=== PATIENT | female | born 2000 | race Caucasian/White ===

== ENCOUNTER 2020-02-29 12:00 | Outpatient (RCR) | payer OTHER, SELFPAY ==
--- NOTE | 2020-02-15 15:23 | HP.PTEVAL_ITS ---
Patient's Visit Information THADDEUS MEHTA is a 19 year old F referred to Physical Therapy by Dr. Sixto Jensen MD with a diagnosis of . Date of Evaluation: 02/15/20 Physical Therapist: Catrachito Lewis DPT - Visit Plan Frequency: 1-2x /Week Duration: 6 Weeks Plan: Start with trial of heel lift to determine if beneficial. May need custom orthotic if beneficial. Progress core and hip strengthening for pelvic stability. Also add in IT band stretching. - Subjective Pt. is her today for her initial evaluation with diagnosis of B knees, B hips (R worse than L), and low back pain. Pt. reports no mechanism of injury. Pain has been on and off for years, but worse since starting job (standing ~8 hours a day). Pt. denies N/T. Decreased pain wtih sitting. R leg does pop with walking, each step (not painful). Pt. reports some OTC medcation help, but does not use much. Pt. - Pain lumbar spine Pain Intensity (Out of 10): 0 Pain Intensity Range: 8 R hip Pain Intensity (Out of 10): 0 Pain Intensity Range: 0, 9 L hip Pain Intensity (Out of 10): 0 Pain Intensity Range: 0, 6 R knee Pain Intensity (Out of 10): 0 Pain Intensity Range: 0, 8 L knee Pain Intensity (Out of 10): 0 Pain Intensity Range: 0, 7 - Objective POSTURE: PALPATION: NEURO: ROM: MMT: GAIT: - Goals Goal 1:: LTG: Pt. to be I with HEP. Goal Time Frame: 4-6 Weeks Goal 2:: STG: Pt. to stand for 4 hours at work without increase in symptoms. Goal Time Frame: 2-4 Weeks Goal 3:: LTG: Pt. to stand for 8+ hours without increase in symptoms allowing for increased toelrance all work activities. Goal Time Frame: 4-6 Weeks Goal 4:: STG: Pt. to be fit for shoe insert either heel lift or custom orthotic allowing for improved pelvic/hip/lumbar positioning Goal Time Frame: 2-4 Weeks Goal 5:: LTG: Pt. to have increased core and BLE strength increased by 1/2 grade of all effected musculature. - Rehabilitation Potential Rehabilitation Potential: Excellent - Anticipated Interventions Thank you for the opportunity to evaluate your patient. For Medicare and Medicare HMO plans, please review the plan of care and approve it. It will need to be FAXED BACK to us at [phone] for Medicare purposes. For Medicare only, by signing this I certify the plan of care. Please let me know if there are questions or concerns regarding this plan of care. Physician Signature: Date:
--- NOTE | 2020-02-15 16:07 | HP.PTEVAL_ITS ---
Patient's Visit Information THADDEUS MEHTA is a 19 year old F referred to Physical Therapy by Dr. Sixto Jensen MD with a diagnosis of B knee pain, B hip pain (R worse than L), and low back pain. Date of Evaluation: 02/15/20 Physical Therapist: Catrachito Lewis DPT - Visit Plan Frequency: 1-2x /Week Duration: 6 Weeks Plan: Start with trial of heel lift to determine if beneficial. May need custom orthotic if beneficial. Progress core and hip strengthening for pelvic stability. Also add in IT band stretching. - Subjective Pt. is her today for her initial evaluation with diagnosis of B knee pain, B hip pain (R worse than L), and low back pain. Pt. reports no mechanism of injury. Pain has been on and off for years, but worse since starting job (standing ~8 hours a day). Pt. denies N/T. Decreased pain wtih sitting. R leg does pop with walking, each step (not painful). Pt. reports some OTC medcation help, but does not use much. Pt. works at [employer] and has been having increased pain with prolonged standing at work. Pt. is also a student at [employer]. Pt. has not tried any exercises and has not been active in gym recently. Pt. is hopefull to reduce pain, popping and tolerate standing at work with decreased pain. - Pain lumbar spine Pain Intensity (Out of 10): 0 Pain Intensity Range: 8 R hip Pain Intensity (Out of 10): 0 Pain Intensity Range: 0, 9 L hip Pain Intensity (Out of 10): 0 Pain Intensity Range: 0, 6 R knee Pain Intensity (Out of 10): 0 Pain Intensity Range: 0, 8 L knee Pain Intensity (Out of 10): 0 Pain Intensity Range: 0, 7 - Objective POSTURE: Pt. has good posture in stance. Pt. has equal wt. shifting. Pt. has equal iliac crest heights. PALPATION: pt. has some tenderness at R TFL muscle belly, minimal pain at greater trochanter. No pain with palpation of lumbar spine or lumbar erector spinea. Pt. did have a ture ~1cm leg length discrepency with L being longer than R. NEURO: Normal sensation of BLEs. Normal DTR of BLEs. ROM: LUMBAR SPINE: Pt. has full ROM of lumbar with out increase in symptoms. No pain with over pressures. Pt. has full B hip ROM without increase in symptoms. Pt. does have tight B HS and tight IT bands of BLEs. Pt. has normal knee ROM bilaterally. MMT: Pt. has good strength of BLEs except- 4+/5 hip abduction bilaterally, 4/5 bilateral hip extension, fair- lower and upper abdominals. GAIT: Pt. has fairly normal gait pattern, no noticeable [place], no lateral translation, no antalgic pattern, no vaulting noted. - Special Tests L/S Slump test left side: Negative L/S Slump test right side: Negative L/S Left Straight Leg Raise: Negative L/S Right Straight Leg Raise: Negative Lumbar Standing: Flexion - Mechanical Response: No effect Lumbar Standing: Flexion - Symptoms During Testing: No effect Lumbar Standing: Flexion - Symptoms After Testing: No effect Lumbar Standing: Extension - Mechanical Response: No effect Lumbar Standing: Extension - Symptoms During Testing: No effect Lumbar Standing: Extension - Symptoms After Testing: No effect Lumbar Standing: Right Side Glides - Mechanical Response: No effect Lumbar Standing: Right Side Naches - Symptoms During Testing: No effect Lumbar Standing: Right Side Naches - Symptoms After Testing: No effect Lumbar Standing: Left Side Naches - Mechanical Response: No effect Lumbar Standing: Left Side Naches - Symptoms During Testing: No effect Lumbar Standing: Left Side Naches - Symptoms After Testing: No effect R Hip Scour: Negative R Hip ROBB - Intraarticular Pathology: Negative R Hip FADDIR - Labrum: Negative R Hip Adrianne - IT Band: Positive L Hip Scour: Negative L Hip Quadrant - Intraarticular Pathology: Negative L Hip ROBB - Intraarticular Pathology: Negative L Hip FADDIR - Labrum: Negative L Hip Adrianne - IT Band: Positive R Knee Alison - Meniscus: Negative R Knee Apley - Meniscus: Negative R Knee Disco Test - Meniscus: Negative - Goals Goal 1:: LTG: Pt. to be I with HEP. Goal Time Frame: 4-6 Weeks Goal 2:: STG: Pt. to stand for 4 hours at work without increase in symptoms. Goal Time Frame: 2-4 Weeks Goal 3:: LTG: Pt. to stand for 8+ hours without increase in symptoms allowing for increased toelrance all work activities. Goal Time Frame: 4-6 Weeks Goal 4:: STG: Pt. to be fit for shoe insert either heel lift or custom orthotic allowing for improved pelvic/hip/lumbar positioning Goal Time Frame: 2-4 Weeks Goal 5:: LTG: Pt. to have increased core and BLE strength increased by 1/2 grade of all effected musculature. - Rehabilitation Potential Physical Therapy Diagnosis: Pt. has signs and symptoms consistent with consistent with B knee, hip and low back pain. Pt. did not have any signs of back pain with all testing today, but did have some R hip pain, tight IT band, some popping (hypermobility) with testing and hip/core weakness. She also had a leg length discrepency L longer than R. Pt. would benefit from PT to address above limitations progressing back with work related activities without increase in symptoms. Rehabilitation Potential: Excellent - Anticipated Interventions Patient/Client Instruction: Educate patient on: Condition, Plan of Care, Risk Factors, Benefits of Fitness Program For the Purpose of:: To facilitate caregiver knowledge, To improve self man agement, To prevent re-injury Therapeutic Exercise to Include: Strength training, Power training, Body mechanics, Postural training, Flexibilty training, Gait and locomotor training, Passive ROM, Active ROM, Dynamic Lumbar Stabilization, Giulia Exercises For the Purpose of:: To decrease pain, To increase ROM, To improve nutrient delivery to tissue, To increase oxygenation perfusion, To improve muscle performance and motor function, To improve ability to perform ADL's, To decrease level of supervision to perform tasks, To improve ability of physical actions for home/community/work/leisure, To improve health of tissue, To decrease soft tissue restriction Orthotics: Shoe insert For the Purpose of:: To decrease pain, To improve nutrient delivery to tissue, To increase oxygenation perfusion, To improve muscle performance and motor function Thank you for the opportunity to evaluate your patient. For Medicare and Medicare HMO plans, please review the plan of care and approve it. It will need to be FAXED BACK to us at [phone] for Medicare purposes. For Medicare only, by signing this I certify the plan of care. Please let me know if there are questions or concerns regarding this plan of care. Physician Signature: Date:
== END 2020-02-29 19:00 | disposition home or self-care (01) ==
LOC: PT 12:00
PROVIDERS: PCP Family Medicine; Referring Provider Family Medicine; Visit Provider Family Medicine
DX: M25.551 Pain in right hip (principal); M25.562 Pain in left knee; M25.561 Pain in right knee; Q72.891 Other reduction defects of right lower limb
CPT/HCPCS: 97110; 97161

== ENCOUNTER → 2022-09-15 | Outpatient (CLI) | payer OTHER, SELFPAY ==
[2022-11-08 20:54] LABS: HPV Reflexed? NOT INDICATED
== END | disposition home or self-care (01) ==
LOC: LABSPEC 11:09
PROVIDERS: PCP Family Medicine; Referring Provider Registered Nurse; Visit Provider Registered Nurse
DX: Z12.4 Encounter for screening for malignant neoplasm of cervix (principal); N92.6 Irregular menstruation, unspecified
CPT/HCPCS: 88175; G0145

== ENCOUNTER → 2022-09-18 | Outpatient (CLI) | payer OTHER, SELFPAY ==
--- NOTE | 2022-09-18 16:41 | US_ITS ---
EXAM: US PELVIS TRANSVAGINAL CLINICAL INDICATION: irregular frequent menses TECHNIQUE: Transvaginal pelvic ultrasound was performed with grayscale and color Doppler imaging. Transvaginal imaging was used for better evaluation of the endometrium and adnexa. COMPARISON: No relevant prior studies available. FINDINGS: UTERUS/CERVIX: Endometrial complex measures 3 mm. Uterus measures 6.7 x 3.9 x 3.8 cm. Anteverted. There is no uterine mass. RIGHT OVARY: Right ovary measures 2.9 x 2.9 x 2.2 cm. Blood flow is present in the right ovary. LEFT OVARY: Left ovary measures 3.6 x 2.2 x 5.1 cm. Blood flow is present in the left ovary. FREE FLUID: No adnexal masses or free fluid. BLADDER: Empty bladder which cannot be evaluated with this probe. US/Transvaginal Non- IMPRESSION: No significant abnormality. Electronically Signed: Tiago Bella MD at 23:45 EDT ,
== END | disposition home or self-care (01) ==
LOC: US 16:30
PROVIDERS: PCP Family Medicine; Referring Provider Registered Nurse; Visit Provider Registered Nurse
DX: N92.6 Irregular menstruation, unspecified (principal)
CPT/HCPCS: 76830